=== PATIENT | female | born 1985 | race American Indian/Alaskan Native ===

== ENCOUNTER 2020-10-11 21:07 | Outpatient (CLI) | payer MEDICAID ==
[2020-10-11] MEDS ORDERED: LACTATED RINGERS 1,000 ML IV ONE (22:04)
[2020-10-11] MEDS ORDERED: TERBUTALINE 1 MG/1 ML INJ SUB-Q ONE ×2 (22:24→23:29)
[2020-10-11 22:46] LABS: Mucus,Urine 3+ /HPF
[2020-10-11 22:55] LABS: WBC,Urine > 182.0 /HPF (0.0-6.0)
[2020-10-11 23:01] LABS: Bilirubin,Urine NEG (Negative); Blood,Urine SM (Negative); Color,Urine Yellow (Yellow)
[2020-10-12 00:27] LABS: Hematocrit 27.3 % (30.3-42.9); Hemoglobin 9.2 gm/dl (10.1-14.3); Mean Corpuscular HGB Conc 34 % (30-34); Mean Corpuscular Volume 91 fl (79-97); Platelet Count 255 K/mm3 (140-440); Red Blood Count 3.01 M/mm3 (3.65-5.03); Red Cell Distribution Width 15.5 % (13.2-15.2)
[2020-10-12 00:42] LABS: Alanine Aminotransferase 7 units/L (7-56)
[2020-10-12] MEDS ORDERED: hydrOXYzine PAMOATE 25 MG CAP PO ONE (00:42)
[2020-10-12] MEDS ORDERED: ACETAMINOPHEN 500 MG TAB PO ONE (00:42)
[2020-10-12 01:54] VITALS: BP 93/53
[2020-10-12 01:59] LABS: Uric Acid 3.7 mg/dL (3.5-7.6)
== END 2020-10-12 02:30 | disposition home or self-care (01) ==
LOC: TRG 21:07 → APU 21:09 → TRG 10-12 02:30
PROVIDERS: ATTEND Obstetrics & Gynecology
DX: O62.9 Abnormality of forces of labor, unspecified (principal); O99.343 Other mental disorders complicating pregnancy, third trimester; F41.9 Anxiety disorder, unspecified; Z3A.36 36 weeks gestation of pregnancy
CPT/HCPCS: 36415; 59025; 81001; 82565; 83615; 84450; 84460; 84550; 85027; 86850; 86900; 86901; 96360; 96372; J3105; J7120; 96365